=== PATIENT | female | born 1990 | race Hispanic/Latino ===

== ENCOUNTER 2016-05-18 06:37 | Observation (INO) | payer MEDICAID ==
[2016-05-18] MEDS ORDERED: PEPCID PO NR (07:00)
[2016-05-18] MEDS ORDERED: NEURONTIN PO NR (07:00)
[2016-05-18] MEDS ORDERED: NACL 0.9% 1000 ML 1,000 ML IV SCH (07:00)
[2016-05-18] MEDS ORDERED: VERSED IV NR ×2 (07:00→13:11)
--- NOTE | 2016-05-18 07:14 | Anesthesia Consultation ---
Anesthesia Consult and Med Hx Date of service: 05/18/16 - Airway Anesthetic Teeth Evaluation: Good ROM Head & Neck: Adequate Mental/Hyoid Distance: Adequate Mallampati Class: Class II Intubation Access Assessment: Probably Good - Pulmonary Exam CTA: Yes - Cardiac Exam Cardiac Exam: RRR - Pre-Operative Health Status ASA Pre-Surgery Classification: ASA2 Proposed Anesthetic Plan: General Nerve Block: TAP - Pulmonary Hx Smoking: Yes - Cardiovascular System Hx Hypertension: No - Central Nervous System Hx Psychiatric Problems: Yes - Endocrine Hx Non-Insulin Dependent Diabetes: No - Other Systems Hx Alcohol Use: Yes (occas) Hx Cancer: No
--- NOTE | 2016-05-18 07:15 | Anesthesia Day of Surgery ---
Anesthesia Day of Surgery - Day of Surgery Patient Examined: Yes Patient H&P Reviewed: Yes Patient is NPO: Yes
[2016-05-18] MEDS ORDERED: SUBLIMAZE IV SCH (07:18)
[2016-05-18 07:42] LABS: Basophils % (Auto) 0.3 % (0.0-1.8); Eosinophils % (Auto) 3.2 % (0.0-4.3); Hematocrit 42.2 % (30.3-42.9); Hemoglobin 14.3 gm/dl (10.1-14.3); Mean Corpuscular HGB Conc 34 % (30-34); Mean Corpuscular Hemoglobin 31 pg (28-32); Mean Corpuscular Volume 91 fl (79-97); Platelet Count 204 K/mm3 (140-440); Red Blood Count 4.65 M/mm3 (3.65-5.03); Red Cell Distribution Width 12.9 % (13.2-15.2); White Blood Count 5.4 K/mm3 (4.5-11.0)
[2016-05-18] MEDS ORDERED: DIPRIVAN 10 MG/ML IV ONE (07:45)
[2016-05-18] MEDS ORDERED: ZEMURON IV ONE ×2 (07:45→11:08)
[2016-05-18] MEDS ORDERED: XYLOCAINE MPF 2% ONE (07:45)
[2016-05-18] MEDS ORDERED: DILAUDID ONE (07:45)
[2016-05-18] MEDS ORDERED: DECADRON ONE (07:46)
[2016-05-18] MEDS ORDERED: MARCAINE-EPI/PF 0.5%-1:200,000 INFILTRATI ONE (07:46)
[2016-05-18] MEDS ORDERED: MARCAINE-EPI 0.5%-1:200,000 INFILTRATI ONE (07:46)
[2016-05-18] MEDS ORDERED: ZOFRAN IV PRN (07:56)
[2016-05-18 07:59] LABS: Alanine Aminotransferase 10 units/L (7-56); Albumin 4.3 g/dL (3.9-5); Albumin/Globulin Ratio 1.5 %; Alkaline Phosphatase 99 units/L (35-129); BUN/Creatinine Ratio 23.33; Bilirubin,Total 0.3 mg/dL (0.1-1.2); Blood Urea Nitrogen 14 mg/dL (7-17); Calcium 8.6 mg/dL (8.4-10.2); Carbon Dioxide 23 mmol/L (22-30); Glucose 104 mg/dL (65-100); Total Protein 7.1 g/dL (6.3-8.2)
[2016-05-18 08:00] LABS: Anion Gap 17 mmol/L; Chloride 103.4 mmol/L (98-107); Potassium 4.1 mmol/L (3.6-5.0); Sodium 139 mmol/L (137-145)
[2016-05-18] MEDS ORDERED: NACL 0.9% 1000 ML 1,000 ML ONE ×2 (09:34→10:01)
[2016-05-18] MEDS ORDERED: ANCEF/STERILE WATER 2 GM/20 ML IV NR (10:00)
[2016-05-18] MEDS ORDERED: WATER FOR IRRIG STERILE IR ONE (10:15)
[2016-05-18] MEDS ORDERED: THROMBIN SPRAYKIT (BOVINE) TP ONE (10:15)
[2016-05-18] MEDS ORDERED: NACL 0.9% IR ONE ×2 (10:15)
[2016-05-18] MEDS ORDERED: NEOSPORIN GU IR ONE (10:15)
[2016-05-18] MEDS ORDERED: CALCIUM CHLORIDE IV ONE (10:15)
[2016-05-18] MEDS ORDERED: ZOFRAN ONE (11:37)
[2016-05-18] MEDS ORDERED: TORADOL ONE (11:37)
[2016-05-18] MEDS ORDERED: ROBINUL ONE (11:37)
[2016-05-18] MEDS ORDERED: BLOXIVERZ ONE (11:37)
[2016-05-18] MEDS ORDERED: METHYLENE BLUE IV ONE (11:41)
--- NOTE | 2016-05-18 12:12 | Short Stay Summary ---
Short Stay Documentation - History H&P: obtained from office - Allergies and Medications Current Medications: Allergies No Known Allergies Allergy (Unverified 05/14/16 16:59) Home Medications Medication Instructions Recorded Confirmed Last Taken Type ALPRAZolam [Alprazolam] 1 tab PO BID 05/14/16 05/14/16 Unknown History Valacyclovir HCl [valACYclovir] 1 tab PO DAILY 05/14/16 05/14/16 Unknown History Active Medications Cefazolin Sodium (Ancef/Sterile Water 2 Gm/20 Ml) 2 gm IV PREOP NR Stop: 05/18/16 23:59 Celecoxib (Celebrex) 200 mg PO PREOP NR Stop: 05/18/16 23:01 Last Admin: 05/18/16 07:38 Dose: 200 mg Famotidine (Pepcid) 20 mg PO PREOP NR Stop: 05/18/16 23:00 Last Admin: 05/18/16 07:40 Dose: 20 mg Fentanyl (Sublimaze) 100 mcg IV ONCE SARAI Stop: 05/18/16 23:00 Last Admin: 05/18/16 07:55 Dose: 100 mcg Gabapentin (Neurontin) 300 mg PO PREOP NR Stop: 05/18/16 23:00 Last Admin: 05/18/16 07:40 Dose: 300 mg Hydromorphone HCl (Dilaudid) 0.25 mg IV Q10MIN PRN PRN Reason: Pain, Moderate (4-6) Stop: 05/18/16 18:00 Sodium Chloride (Nacl 0.9% 1000 Ml) 1,000 mls @ 100 mls/hr IV DIRECT SARAI Last Admin: 05/18/16 07:41 Dose: 100 mls/hr Midazolam HCl (Versed) 2 mg IV PREOP NR Stop: 05/18/16 23:59 Last Admin: 05/18/16 07:55 Dose: 2 mg Ondansetron HCl (Zofran) 4 mg IV ONCE PRN PRN Reason: Nausea And Vomiting Stop: 05/18/16 18:00 - Brief post op/procedure progress note Date of procedure: 05/18/16 Pre-op diagnosis: pelvic pain, dyspareunia, dysmenorrhea, s/p bilateral salpingectomy Post-op diagnosis: same Procedure: EUA, laparoscopic, robot-assisted hysterectomy, cystoscopy Anesthesia: GETA Findings: as per preop dx, normal appearing bilateral ovaries. normal appearing bladder with bilateral demonstration of ureteral patency Surgeon: WLIBER AUGUSTINE Estimated blood loss: minimal Pathology: list (uterus, cervix weighing 80 grams) Specimen disposition: to lab Condition: stable - Disposition Condition at discharge: Good Disposition: DISCHARGED TO HOME OR SELFCARE
[2016-05-18] MEDS ORDERED: MILK OF MAGNESIA PO PRN (12:14)
[2016-05-18] MEDS ORDERED: NARCAN 0.4 MG/1 ML IV PRN (12:14)
[2016-05-18] MEDS ORDERED: MORPHINE IV PRN (12:14)
[2016-05-18] MEDS ORDERED: DULCOLAX PR PRN (12:14)
[2016-05-18] MEDS ORDERED: PERCOCET 5/325 PO PRN (12:14)
[2016-05-18] MEDS ORDERED: SODIUM CHLORIDE FLUSH SYRINGE 10 ML IV PRN (12:14)
[2016-05-18] MEDS ORDERED: TYLENOL PO PRN (12:14)
[2016-05-18] MEDS: DILAUDID IV PRN ×2 (12:29→12:40)
[2016-05-18] MEDS ORDERED: D5W/0.45% NACL/KCL 20 MEQ 1,000 ML IV SCH (13:00)
--- NOTE | 2016-05-18 13:08 | Post Anesthesia Evaluation ---
- Post Anesthesia Evaluation Patient Participated: Yes Airway Patent: Yes Stable Respiratory Function: Yes Temp > 96.8F: Yes Pain Manageable: Yes Adequeate Hydration: Yes Anesthesia Complications: No Block Receding Appropriately: Not Applicable
[2016-05-18] MEDS: MORPHINE IV PRN ×2 (15:00→21:32)
--- NOTE | 2016-05-18 15:19 | Operative Report ---
PREOPERATIVE DIAGNOSIS: Pelvic pain refractory to medical management, dyspareunia, dysmenorrhea, status post bilateral salpingectomy, status post Essure with malpositioning in the uterine wall. POSTOPERATIVE DIAGNOSIS: Pelvic pain refractory to medical management, dyspareunia, dysmenorrhea, status post bilateral salpingectomy, status post Essure with malpositioning in the uterine wall. PROCEDURE: EUA, laparoscopic robot assisted hysterectomy, cystoscopy. ANESTHESIA: General. FINDINGS: As per preop diagnosis, normal appearing bilateral ovaries. She had a normal appearing bladder with bilateral demonstration of ureteral patency after being administered methylene blue. SURGEON: Faby Brothers M.D. BUSINESS ADMINISTRATION INSTRUCTOR: Shelby Schwartz. ESTIMATED BLOOD LOSS: Less than 25 mL. PATHOLOGY: Uterus and cervix weighing 80 grams (sent to lab). CONDITION: Stable. INDICATIONS: The patient is a 26-year-old female -0-1-1, with pelvic pain following Essure placement in her right fallopian tube in November 2015 (she is status post a unilateral salpingectomy for ruptured ectopic ). Since placement of Essure, she has had pelvic pain localized to the side of the Essure that has been refractory to medical management. Pelvic ultrasound showed a normal uterus and bilaterally normal ovaries. On 02/11/2016, she underwent a EUA, laparoscopic right salpingectomy with the intention to excise her Essure device. However, there was no Essure device seen in the fallopian tube when examined in the OR nor seen on pathology. She had no improvement in her pain. A followup ultrasound showed what appeared to be residual Essure device in the wall of the uterus. The patient then brought to the operating room today for an EUA, laparoscopic robot assisted hysterectomy and cystoscopy. She was counseled thoroughly prior to the surgery regarding the permanent nature of this procedure, and she denied all other options for treatment. DESCRIPTION OF PROCEDURE: The patient brought to the operating room. General anesthesia was administered without difficulty. She was prepared and draped in usual sterile fashion, positioned in dorsal lithotomy position. A Tong catheter was placed in the bladder. A large VCare device placed in used to provide a means of manipulating the uterus during the surgery. The uterus sounded to 8 cm prior to placement of the device. Attention was turned to the abdomen where a 5 mm optical trocar was placed in left upper quadrant subcostal margin midclavicular line. A 12 mm trocar was placed 3 fingerbreadths superior to the umbilicus in the midline. An 8 mm trocar was placed 8 to 10 cm left midline, 8 mm trocar was placed 8 to 10 cm to the right of midline. Another 12 mm trocar was placed 8 to 10 cm to the right of the midline. The bowel was elevated out of the pelvis. The robot was properly docked. The right round ligament was cauterized and transected. The right uteroovarian ligament was cauterized and transected. The bladder was dissected from the lower uterine segment. The right uterine vessels were skeletonized, cauterized, and then transected. The exact same procedure was carried on the contralateral side. The bilateral cardinal ligaments were cauterized and transected. Following removal of the VCare device, a colpotomy was performed. The uterus and cervix were amputated and removed from the pelvis via the vagina. Hemostasis was visualized. The vaginal cuff was closed in a running fashion using a 0 V-Loc suture. A second layer of same suture was used to imbricate over the vaginal cuff to decrease the risk of wound dehiscence. Hemostasis was confirmed. PRP followed by PPP were generously applied over the vaginal cuff. Following this, 2 mL of Tisseel was also applied generously. All instruments were removed from the abdomen and pelvis. All fascial incisions greater than 8 mm were closed with 0 Vicryl sutures. Skin was closed in subcuticular fashion. Dermabond was applied over the skin incision. The patient was given 10 mL of methylene blue. Following this, a cystoscopy was performed with the findings noted above. Examination of the vagina was performed. The cuff was nicely intact. There was no blood in the vagina. The Tong catheter was reinserted after the cystoscope was withdrawn. The patient tolerated the procedure well and was taken to the PACU in awake and in stable condition. JOB# [id number] VIDYA/MAYKEL
[2016-05-18] MEDS: REGLAN IV PRN ×2 (15:30→21:32)
[2016-05-18] MEDS: ANCEF/NS 1 GM/50 ML 50 ML IV SCH (16:33)
[2016-05-18] MEDS: TORADOL IV SCH ×2 (16:35→22:42)
[2016-05-18] MEDS: COLACE PO SCH (22:43)
[2016-05-18] MEDS: XANAX PO SCH (22:43)
[2016-05-18] MEDS: FLAGYL 500 MG/100 ML 100 ML IV SCH (22:44)
[2016-05-19] MEDS: ANCEF/NS 1 GM/50 ML 50 ML IV SCH (00:43)
[2016-05-19] MEDS: TORADOL IV SCH ×2 (05:15→12:11)
[2016-05-19 05:20] LABS: Hematocrit 37.1 % (30.3-42.9); Hemoglobin 13.1 gm/dl (10.1-14.3)
[2016-05-19 05:31] LABS: BUN/Creatinine Ratio 16.66; Blood Urea Nitrogen 10 mg/dL (7-17); Calcium 8.3 mg/dL (8.4-10.2); Carbon Dioxide 22 mmol/L (22-30); Chloride 105.5 mmol/L (98-107); Glucose 115 mg/dL (65-100); Magnesium 2.1 mg/dL (1.7-2.3); Sodium 139 mmol/L (137-145)
[2016-05-19 05:39] LABS: Anion Gap 16 mmol/L
[2016-05-19] MEDS: FLAGYL 500 MG/100 ML 100 ML IV SCH (06:43)
[2016-05-19] MEDS: COLACE PO SCH (09:34)
[2016-05-19] MEDS: XANAX PO SCH (09:53)
[2016-05-19] MEDS ORDERED: PROTONIX IV SCH (10:00)
--- NOTE | 2016-05-19 10:51 | Progress Note ---
Subjective Date of service: 05/19/16 Interval history: 1st POD after robotic hysterectomy Patent is comfortable, pain is well controlled with pain meds. No nausea ort vomiting. No anesthesia complications Objective - Constitutional Vitals: Vital Signs - 12hr 05/19/16 05/19/16 05/19/16 04:00 09:18 09:39 Temperature 98.6 F 98.4 F Pulse Rate [ 82 86 From Monitor] Respiratory 20 20 18 Rate Blood Pressure 136/78 123/53 [Right Arm] - Labs CBC & Chem 7: 05/19/16 05:10 05/19/16 05:10 Labs: Abnormal lab results 05/19/16 Range/Units 05:10 Creatinine 0.6 L (0.7-1.2) mg/dL Glucose 115 H (65-100) mg/dL Calcium 8.3 L (8.4-10.2) mg/dL
--- NOTE | 2016-05-19 12:31 | Admit Criteria Form ---
Admission Criteria Documentation: AMBULATORY SURGERY EXCEPTION CRITERIA Ambulatory Surgery Exception Criteria ( Place 'X' for any and all applicable criteria): Surgery or procedure performed on ambulatory basis may require inpatient stay for[A] ANY ONE of the following(1)(2)(3)(4)(5)(6)(7)(8)(9): [X] I. A preoperative situation, condition, or finding that warrants inpatient stay as indicated by ANY ONE of the following: [X] a) Inpatient care needed because of severity of a disease or condition rather than the surgery (eg, severe cardiac or respiratory disease, severe infection) (15) (16 ) (17) (18) [] b) Emergent procedure (eg, angioplasty for acute ischemia)(19) [] c) Complex surgical approach or situation as indicated by ANY ONE of the following(3): [] i) Open approach needed instead of usual endoscopic, transcatheter, or other less invasive procedure [] ii) Difficult approach because of previous operation [] iii) Airway monitoring required after open neck procedures(20)(21) [] iv) Large mass requiring unusually extensive dissection [] v) Additional complicating feature requiring inpatient care (eg, drain management)(22(23): [] d) Major surgery in a pt with high anesthetic risk as indicated by ANY ONE of the following (2)(3)(5)(7)(8): [] i) ASA risk class III or higher (severe systemic disease impairing function) [D] [] ii) Advanced age (eg, older than 85 years)(14)(24) [] iii) Symptomatic heart failure(25) [] iv) Symptomatic asthma or COPD(8)(21) [] v) Morbid obesity with hemodynamic or respiratory problems(20)( 21)(26)(27) [] vi) Obstructive sleep apnea(20)(21) [] vii) Former premature infants who are younger than 60 weeks [] viii) High risk for severe postoperative abnormalities (eg, severe postoperative hypocalcemia after parathyroidectomy for severe hyperparathyroidism)(27)( 28) [] ix) Unstable angina(25) [] e) Drug-related risk requiring inpatient stay as indicated by ANY ONE of the following(5)(10)(14)(32)(33) [] i) Procedure requires discontinuing drugs or other therapy (eg , antiarrhythmic medication, antiseizure medication), which necessitates inpatient observation or treatment.(18)(31) [] ii) Major surgery and high risk drug use as indicated by ANY ONE of the following: [] 1) Active abuse of cocaine or similar drug [] 2) Monoamine oxidase inhibitor use [] 3) Other drug identified as posing risk [] f) Inadequate outpatient care situation as indicated by ANY ONE of the following(5)(10)(14)(32)(33) [] i) Patient lives remote from medical facility and procedure has urgent complication potential, and temporary nearby residence cannot be arranged [] ii) Patient will have postprocedure incapacitation and inadequate assistance at home, or alternative level of care cannot be arranged. [] iii) Patient will have long general anesthesia or procedure side effect resolution time, and competent person to stay with patient on first postoperative night at home or alternative level of care cannot be arranged. []iv) Other inadequate outpatient situation that cannot be handled by other means [] II. A perioperative event, condition, or finding that warrants inpatient stay as indicated by ANY ONE of the following (1)(2)(3): [] a) Inadequate physiologic recovery: cardiovascular, respiratory, or hemodynamic status not normal or near preoperative baseline(18) [] b) Hemodynamic instability [] c) Patient not alert with near normal or baseline mental status [] d) Temperature not normal or as expected and not appropriate for outpatient treatment of condition [] e) Ambulatory or appropriate activity level status not yet achieved post procedure [E](34)(35)(36) [] f) Operative site not appropriate (eg, unexpected or excessive drainage or bleeding) [] g) Postoperative effects not resolved or adequately managed (eg, significant pain or vomiting not appropriate for outpatient or next level of care)(10)(12) [] h) Complicating features requiring inpatient care as indicated by ANY ONE of the following(37): [] i) Severe complications of procedure (eg, bowel injury, airway compromise, vascular injury,severe hemorrhage) [] ii) Extensive (eg, dissection far beyond usual scope of procedure ) or prolonged (eg, 120 minutes beyond usual) surgery needed requiring inpatient postoperative care [] iii) Conversion to an open or complex procedure that requires inpatient care (eg, open vs laparoscopic cholecystectomy, abdominal vs vaginal hysterectomy)(38) [] iv) Comorbid condition or test result identified during or post procedure that requires inpatient care (7) [] v) Malignant hyperthermia(30) [] vi) Other complicating feature requiring inpatient care(22)(23) Inpatient stay may be needed until ALL of the following are present (1)(2)(3)(4) (5)(6)(10)(14)(33)(40): []a) Physiologic recovery: cardiovascular, respiratory, and hemodynamic status normal or near preoperative baseline []b) Hemodynamic stability []c) Patient alert, with near normal or baseline mental status []d) Temperature appropriate: patient afebrile or temperature appropriate for outpt treatment of condition []e) Activity level appropriate: ambulatory or appropriate activity level post procedure []f) Operative site appropriate as indicated by ALL of the following: []i) Site dry or with expected drainage []ii) Any blood noted is as expected for procedure. []g) Postoperative effects resolved or managed as indicated by ALL of the following: []i) Pain management appropriate for outpatient (or next level of) care(10) []ii) Minimal nausea and vomiting: if present, successfully treated with oral medication(12) []iii) Headache, dizziness, or drowsiness (if present) are mild. []h) Voiding status acceptable as indicated by ANY ONE of the following: []i) Voiding spontaneously []ii) No voiding but instructions given for follow-up in 6 to 8 hours []iii) Urinary catheter in place, and instructions given for follow-up []i) Complicating features requiring inpatient care manageable at a lower level of care(37) []j) Comorbid conditions manageable at a lower level of care(37) The original [employer] content created by [employer] has been revised. The portions of the content which have been revised are identified through the use of italic text or in bold, and [employer] has neither reviewed nor approved the modified material. All other unmodified content is copyright [employer]. Please see references footnoted in the original [employer] edition 2016 Admission Criteria Met: Yes
[2016-05-19 14:08] VITALS: BP 129/75
== END 2016-05-19 13:35 | disposition home or self-care (01) ==
LOC: OR 06:37 → OB 12:14
PROVIDERS: ADMIT Obstetrics & Gynecology Gynecology; ATTEND Obstetrics & Gynecology Gynecology
DX: O26.899 Other specified pregnancy related conditions, unspecified trimester (principal); R10.2 Pelvic and perineal pain; N94.6 Dysmenorrhea, unspecified; N94.10 Unspecified dyspareunia; Z90.722 Acquired absence of ovaries, bilateral; Z3A.00 Weeks of gestation of pregnancy not specified
CPT/HCPCS: 36415; 58552; 64450; 80048; 80053; 81025; 83735; 85014; 85018; 85025; 86850; 86900; 86901; 88304; 96365; 96366; 96367; 96375; 96376; A4217; C9113; C9250; G0378; J0690; J1100; J1170; J1885; J2250; J2270; J2405; J2704; J2710; J2765; J3010; J7030; Q9968; 88307